=== PATIENT | female | born 1980 | race Caucasian/White ===

== ENCOUNTER → 2016-03-21 16:39 | Outpatient (CLI) | payer MEDICAID ==
[2016-02-11 11:14] VITALS: BMI 26.7
[~2016-03-21 16:39] MED LIST: CLEOCIN HCL150 MG PO; DEPAKOTE250 MG PO; HYDROCODONE-APA1 TAB PO; MONODOX100 MG PO; MUPIROCIN22 GM TOPICAL; NYSTATIN ORAL SU5 ML PO; PERCOCET 10/3251 TA1 PO; ROBAXIN500 MG PO; SEROQUEL200 MG PO; XANAX2 MG PO
== END | disposition home or self-care (01) ==
LOC: D.LABREF 16:39
DX: L02.411 Cutaneous abscess of right axilla (principal)

== ENCOUNTER → 2017-02-24 16:21 | Outpatient (CLI) | payer MEDICAID ==
[2016-02-11 11:14] VITALS: BMI 26.7
== END | disposition home or self-care (01) ==
LOC: D.CT 16:21
DX: R10.9 Unspecified abdominal pain (principal); R11.2 Nausea with vomiting, unspecified

== ENCOUNTER 2017-03-22 17:31 | Emergency (ER) | payer MEDICAID ==
[2016-02-11 11:14] VITALS: BMI 26.7
[2017-03-22 19:50] LABS: BASOPHILS 0.2 % (0-2); EOSINOPHILS 0.3 % (0-7); HEMATOCRIT 39.6 % (36.0-48.0); HEMOGLOBIN 13.7 g/dL (12-16); IMMATURE GRANULOCYTES 0.3 % (0-5); LYMPHOCYTES 35.6 % (15-50); MCH 29.8 pg (26.0-34.0); MCHC 34.6 g/dL (31.0-37.0); MCV 86.1 fL (80.0-100.0); MEAN PLATELET VOLUME 10.1 fL (7.4-10.4); MONOCYTES 6.7 % (2-11); NEUTROPHILS 56.9 % (40-80); PLATELET COUNT 221 10x3/uL (130-400); RDW 12.5 % (11.5-14.5); WBC 10.4 10x3/uL (4.8-10.8)
[2017-03-22 20:07] LABS: ALKALINE PHOSPHATASE 54 U/L (46-116); ALT (SGPT) 26 U/L (10-68); BILIRUBIN - TOTAL 0.29 mg/dL (0.2-1.3); CALC OSMOLALITY 275 mosm/kg (275-300); CARBON DIOXIDE 26.2 mmol/L (21.0-32.0); CHLORIDE - SERUM 105 mmol/L (98-107); CREATININE - SERUM 0.8 mg/dL (0.6-1.3); GLUCOSE 83 mg/dL (74-106); POTASSIUM - SERUM 3.4 mmol/L (3.5-5.1); PROTEIN - SERUM 7.2 g/dL (6.4-8.2); SODIUM 140 mmol/L (136-145); UREA NITROGEN 6 mg/dL (7-18); eGFR NON AFRICAN AMERICAN 86 mL/min (90-120)
[2017-03-22 20:08] LABS: ALBUMIN 4.1 g/dL (3.4-5.0)
== END 2017-03-22 23:29 | disposition home or self-care (01) ==
LOC: D.ER 17:31
PROVIDERS: Physician Assistant
DX: R19.7 Diarrhea, unspecified (principal); J20.9 Acute bronchitis, unspecified; E87.6 Hypokalemia